=== PATIENT | female | born 1995 | race Caucasian/White ===

== ENCOUNTER 2018-12-04 18:40 | Emergency (ER) | payer BC ==
[2018-12-04 19:02] VITALS: BP 153/103; PULSE 85; TEMP 98.2; BMI 24.9
[2018-12-04] MEDS ORDERED: SODIUM CHLORIDE 1,000 ML IV STA (20:14)
[2018-12-04] MEDS ORDERED: ONDANSETRON 4 MG/2 ML VIAL IVPUSH ONE (20:14)
[2018-12-04] MEDS ORDERED: ONDANSETRON 4 MG/2 ML VIAL ONE (20:22)
[2018-12-04] MEDS ORDERED: KETOROLAC TROMETHAMINE 30 MG/1 ML VIAL IVPUSH ONE (20:27)
[2018-12-04] MEDS ORDERED: KETOROLAC TROMETHAMINE 30 MG/1 ML VIAL ONE (20:40)
--- NOTE | 2018-12-05 04:23 | PDOC ---
Documentation entered by Aime Ascnecio SCRIBE, acting as scribe for Marianne Hernandez MD. Marianne Hernandez MD: This documentation has been prepared by the Sonu hurtado Daniel, SCRIBE, under my direction and personally reviewed by me in its entirety. I confirm that the documentation accurately reflects all work, treatment, procedures, and medical decision making performed by me. History of Present Illness - General Chief Complaint: Headache Stated Complaint: HEADACHE Time Seen by Provider: 12/04/18 19:24 History Source: Patient Exam Limitations: No Limitations - History of Present Illness Initial Comments: 12/04/18 20:07 The patient is a 23 year old female with a past medical history of migraines here today for evaluation of a migraine. The patient reports that she woke up this morning with a frontal migraine similar to her previous ones but more severe. She notes associated nausea and photophobia. She reports that she stopped taking her migraine medication ajovy([id number]) a few months ago due to concerns of side effects. Patient notes taking excedrin around 5 pm with minimal relief. Patient denies lightheadedness. Denies fever, chills. Denies chest pain, shortness of breath. Denies vomiting, diarrhea, abdominal pain. Denies numbness , vision changes. Allergies: NKA Social history: Denies tobacco, alcohol, and illicit drug use. PCP: Dewayne Turner Past History - Past Medical History Allergies/Adverse Reactions: Allergies Allergy/AdvReac Type Severity Reaction Status Date / Time No Known Allergies Allergy Unverified 12/04/18 18:41 COPD: No Other medical history: migraine - Suicide/Smoking/Psychosocial Hx Smoking History: Never smoked Information on smoking cessation initiated: No Hx Alcohol Use: Yes (social) Drug/Substance Use Hx: No Review of Systems - Review of Systems Able to Perform ROS?: Yes Comments:: 12/04/18 20:07 All systems are reviewed and negative except as noted in the HPI *Physical Exam - Vital Signs Last Vital Signs Temp Pulse Resp BP Pulse Ox 98.2 F 85 16 153/103 H 100 12/04/18 18:41 12/04/18 18:41 12/04/18 18:41 12/04/18 18:41 12/04/18 18:41 - Physical Exam Comments: 12/04/18 20:07 GENERAL: Awake, alert, and fully oriented, in no acute distress HEAD: No signs of trauma EYES: PERRLA, EOMI, sclera anicteric, conjunctiva clear ENT: +dry mucous membranes. Auricles normal inspection, hearing grossly normal, nares patent, oropharynx clear without exudates. NECK: Normal ROM, supple, no lymphadenopathy, JVD, or masses LUNGS: Breath sounds equal, clear to auscultation bilaterally. No wheezes, and no crackles HEART: Regular rate and rhythm, normal S1 and S2, no murmurs, rubs or gallops ABDOMEN: Soft, nontender, normoactive bowel sounds. No guarding, no rebound. No masses EXTREMITIES: Normal range of motion, no edema. No clubbing or cyanosis. No cords, erythema, or tenderness NEUROLOGICAL: Cranial nerves II through XII grossly intact. Normal speech, normal gait SKIN: Warm, Dry, normal turgor, no rashes or lesions noted. ED Treatment Course - ADDITIONAL ORDERS Additional order review: Laboratory Results 12/04/18 20:10 Urine HCG, Qual Negative - Medications Given in the ED: ED Medications Discontinued Medications Generic Name Dose Route Start Last Admin Trade Name Freq PRN Reason Stop Dose Admin Ketorolac Tromethamine 30 mg 12/04/18 20:27 12/04/18 20:39 Toradol Injection - IVPUSH 12/04/18 20:28 30 mg ONCE ONE Administration Ondansetron HCl 4 mg 12/04/18 20:14 12/04/18 20:14 Zofran Injection IVPUSH 12/04/18 20:15 4 mg ONCE ONE Administration Medical Decision Making - Medical Decision Making As noted above, this 23-year-old woman with a history of migraine headaches, previously controlled with Ajuvy (which the patient stopped herself in July of this year because of concerns regarding possible side effects of the medication ) presents with a one-day history of severe headache. The pattern of pain ( frontal/retroorbital) is unchanged from her usual migraine pattern. She has somewhat more photophobia and nausea than in the past. Patient had taken Excedrin during the day (which is sometimes effective for her migraines) without significant relief. Patient notes that she had not had a severe migraine since she stopped taking the Avuvy 4 months ago. She is not had any neurologic deficits or acute findings as noted above. Exam as noted is unremarkable. Clinical presentation most consistent with migraine headache somewhat more severe than usual but without new features. No evidence of acute neurologic deficit; no need for emergent imaging to rule out more serious etiology of the headache. PGU negative IV access obtained and patient received a liter of normal saline along with Zofran 4 mg IV and 30 mg Toradol IV. After above IV hydration and medications, the patient reports significant relief in pain and resolution of nausea. The patient states that she feels good enough to be discharged. She will continue hydration by mouth at home. If she has any recurrent pain she will take Excedrin. She states she will call her neurologist tomorrow morning to arrange follow-up and be evaluated for further migraine specific treatment *DC/Admit/Observation/Transfer Diagnosis at time of Disposition: Migraine Qualifiers: Migraine type: unspecified Status migrainosus presence: without status migrainosus Intractability: not intractable Qualified Code(s): G43.909 - Migraine, unspecified, not intractable, without status migrainosus - Discharge Dispostion Disposition: HOME Condition at time of disposition: Stable - Referrals Referrals: Dewayne Turner MD [Primary Care Provider] - - Patient Instructions Printed Discharge Instructions: Migraine -- Adult Additional Instructions: Drink plenty of fluids as discussed OTC analgesics (for example Excedrin) as needed for recurrent headache Return to ER if you have severe headache/persistent nausea or vomiting Contact your neurologist tomorrow to arrange for follow-up within the next 2-3 days - Post Discharge Activity
== END 2018-12-04 21:23 | disposition home or self-care (01) ==
LOC: FER 18:40
DX: G43.909 Migraine, unspecified, not intractable, without status migrainosus (principal)
CPT/HCPCS: 84703; 99282-25; J7030